=== PATIENT | male | born 1990 | race Caucasian/White ===

== ENCOUNTER 2025-01-05 22:10 | Emergency (ER) | payer OTHER, SELFPAY ==
--- OUTSIDE RECORDS SUMMARY | 2025-01-05 22:13 | XMS_ITS | Clinical Summary ---
Author Organization [employer] [facility] Address [address] [place] [id number] Care Team Providers Care Lead Operator Name Role Phone Clinic, [facility] Pro vider Allergies No known active allergies Medications No known medications Active Problems No known active problems Social History Tobacco Use Types Packs/Day Years Used Date Smoking Tobacco: Never Smokeless Tobacco: Never Alcohol Use Standard Drinks/Week Comments Never 0 (1 standard drink = 0.6 oz pur e alcohol) Utilities Answer Date Recorded Do you have trouble paying f or utilities (for example, heat, electricity, water, phone)? 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 Gender Identity Not on file Sexual Orientation Not on file Obstetrics History Last Filed Vital Signs Vital Sign Reading Time Taken Comments Blood Pressure 117/77 07/12/2023 1:55 PM CLINICAL PHARMACY MANAGER Pulse 92 07/12/2023 1:55 PM CLINICAL PHARMACY MANAGER Temperature 36.6 C (97.9 F) 07/12/2023 1:55 PM CLINICAL PHARMACY MANAGER Respiratory Rate 16 07/12/2023 1:55 PM CLINICAL PHARMACY MANAGER Oxygen Saturation 96% 07/12/2023 1:55 PM CLINICAL PHARMACY MANAGER Inhaled Oxygen Concentration - - Weight 110.9 kg (244 lb 9.6 oz) 07/12/2023 1:55 PM CLINICAL PHARMACY MANAGER Height - - Body Mass Index - - Plan of Treatment Health Maintenance Due Date Last Done Comments Tetanus booster 02/16/1999 Depression screening for age 12+ 2000 HIV for age 15-65 02/16/2003 BMI (ht and wt on same day) for age 18+ 02/16/2006 Hepatitis C screening for ag e 18-79 02/16/2006 Hepatitis B series for 19+ ( 1 of 3 - 19+ 3-dose series) 02/16/2007 Lipids for age 35-44 02/16/2023 COVID-19 vaccine series ( - 2023- season) 2024 Influenza Vaccine (#1) 2025 Pneumococcal series for age 6-49 Aged Out No longer eligible based on patient's age to complete this topic Care Teams Lead Operator Relationship Specialty Start Date End Date [facility], [address] [address] PCP - General 07/12/23
[2025-01-05 22:20] VITALS: BP 134/82; PULSE 90; RESP 20; TEMP 37.1; O2SAT 97; BMI 35.0
--- NOTE | 2025-01-05 22:39 | CRLHL7_ITS ---
For Patients: As a result of the Cures Act, medical imaging exams and procedure reports are released immediately into your electronic medical record. You may view this report before your referring provider. If you have questions, please contact your health care provider. INDICATION: Cough, SOB. TECHNIQUE: Chest 2 views. COMPARISON: 10/29/2024. FINDINGS: Cardiovascular and mediastinum: Heart size is normal. Unremarkable mediastinum. Lungs and pleural spaces: No sign of infiltrate or mass. No sign of pleural effusion. No pneumothorax. Bones and soft tissues: No significant findings. IMPRESSION: No acute findings. Dictated by Jayden Fiore MD @ 01/05/2025 10:58:37 PM (Electronically Signed)
--- NOTE | 2025-01-05 22:42 | ED.SOB ---
HPI - SOB/Dyspnea General Time Seen by Provider: 22:42 Date Seen: 01/05/25 Chief Complaint: Cough Stated Complaint: sob, not feeling good, pneumonia Time Seen by Provider: 01/05/25 22:40 Source: patient Mode of arrival: ambulatory History of Present Illness HPI Narrative: Giuliano is a 34-year-old male with no significant past medical history who presents emergency department for evaluation of a cough and shortness of breath. Patient reports that approximately 1 week ago he had upper respiratory infection/head cold. Patient states symptoms started to improve or Tuesday he developed another illness. Patient complains of generally feeling unwell, head pressure, rhinorrhea, dry cough, raspy voice, and today some shortness of breath. Patient reports he was seen at urgent care on Tuesday, no workup was done at that time, was told likely upper respiratory infection. Patient reports history of pneumonia 2 years ago and would like to make sure he does not have pneumonia. Patient denies any fever, chills, reports some chest discomfort with coughing but no other chest pain, denies any abdominal pain, nausea, vomiting, diarrhea. No lower extremity edema or calf tenderness. Patient reports he has been tried taking Mucinex, Sudafed, ibuprofen with no significant improvement of symptoms. Patient denies any tobacco use. Related Data Home Medications ?Medication ?Instructions ?Recorded ?Confirmed No Known Home Medications 10/29/24 01/05/25 Allergies Allergy/AdvReac Type Severity Reaction Status Date / Time No Known Drug Allergies Allergy Verified 01/05/25 22:23 Review of Systems Narrative: Past medical history, past surgical history, medications, allergies, family history, and social history were reviewed with the patient. No additional pertinent items. A medically appropriate review of systems was performed with pertinent positives and negatives noted in HPI, all other systems negative. [facility] Social History Smoking Status: Never smoker Second hand tobacco smoke exposure: No How often do you have a drink containing alcohol: never AUDIT-C Alcohol total score: 0 Non-prescribed substance use: denies use Exam Narrative: Exam Narrative: General: Afebrile, in distress HEENT: Normocephalic, atraumatic, conjunctiva normal. Bilaterally is with mild erythema, TMs nonbulging, posterior pharynx with mild erythema, no asymmetry, no exudate, MMM Neck: Supple, positive tender lymphadenopathy Cardio: regular rate. regular rhythm Resp: Normal work of breathing, no respiratory distress, lungs clear bilaterally, no wheezing, rhonchi, rales Chest/Back: no visual signs of trauma, no midline tenderness, no CVA tenderness Abdomen: soft, non distension, no tenderness, no peritoneal signs Neuro: alert and fully oriented. CN II-XII grossly intact. Grossly normal strength and sensation in all extremities. MSK: no deformities. Normal range of motion Integumentary/Skin: no rash visualized, normal color Psych: normal affect, normal behavior Const: Vital Signs, click to edit/add: Vital Signs - 24 hr 01/05/25 22:20 Temperature 98.8 F Pulse Rate [Right Pulse Oximeter] 90 Respiratory Rate 20 Blood Pressure [Ri ght Upper Arm] 134/82 Pulse Oximetry 97 Oxygen Delivery Me thod Room Air Course Course ED Course: Giuliano is a 34-year-old male with no significant past medical history who presents emergency department for evaluation of a cough and shortness of breath. Upon arrival patient is nontoxic appearing, afebrile, in distress. Patient hemodynamically stable vital signs within normal limits, oxygen 97% on room air, no significant respiratory distress, no tachycardia. Differential diagnosis includes but is not limited to viral illness versus influenza versus COVID versus RSV versus bronchitis versus pneumonia among others. I personally reviewed interpreted chest x-ray which demonstrates no focal infiltrate, no pneumothorax, no pleural effusion. Strep, COVID/influenza/RSV negative. I discussed results with patient. Suspect likely viral illness/URI. Recommend continue supportive care with humidified air, [id number] cough/cold medications, Tylenol, ibuprofen. I did discuss at length with patient regarding antibiotics. At this time would not recommend antibiotics however given patient's worsening symptoms, will send home with a prescription if he continues to have worsening symptoms over the next 24-48 hours or develops high fever, shortness of breath. Patient understands and agrees with the plan. Patient was treated with dose of dexamethasone in the emergency department. Plan for discharge with close outpatient follow-up and strict return precautions discussed. Vital Signs Vital signs: Initial Vital Signs Temperature 98.8 F 01/05/25 22:20 Temperature Source Temporal Artery Scan 01/05/25 22:20 Pulse Rate 90 01/05/25 22:20 Respiratory Rate 20 01/05/25 22:20 Respiratory Effort Normal, Spontaneous, Non-Labored 01/05/25 22:20 Respiratory Depth Normal 01/05/25 22:20 Respiratory Pattern Normal 01/05/25 22:20 Blood Pressure 134/82 01/05/25 22:20 Blood Pressure Mean 99 01/05/25 22:20 Blood Pressure Position Sitting 01/05/25 22:20 Pulse Oximetry 97 01/05/25 22:20 Oxygen Delivery Method Room Air 01/05/25 22:20 Vital Signs Temperature 98.8 F 01/05/25 22:20 Pulse Rate 90 01/05/25 22:20 Respiratory Rate 20 01/05/25 22:20 Blood Pressure 134/82 01/05/25 22:20 Pulse Oximetry 97 01/05/25 22:20 Oxygen Delivery Method Room Air 01/05/25 22:20 Temperature 98.8 F 01/05/25 22:20 Pulse Rate 90 01/05/25 22:20 Respiratory Rate 20 01/05/25 22:20 Blood Pressure 134/82 01/05/25 22:20 Pulse Oximetry 97 01/05/25 22:20 Oxygen Delivery Method Room Air 01/05/25 22:20 Medications Administered Medications: Generic Name Dose Route Start Last Admin Trade Name Freq PRN Reason Stop Dose Admin Dexamethasone 10 mg 01/05/25 23:42 01/05/25 23:45 Dexamethasone 10 Mg/Ml Pf PO 01/05/25 23:43 10 mg ONCE ONE Administration MDM - SOB/Dyspnea Lab Data Labs: Lab Results 01/05/25 Range/Units 22:51 SARS-CoV-2 (PCR) Negative SARS-CoV-2 (Negative) Influenza Type A (PCR) Negative PCR FLU A (Negative) Influenza Type B (PCR) Negative PCR FLU B (Negative) RSV (PCR) Negative PCR RSV (Negative) Group A Strep DNA NOT DETECTED (Not Detectd) Discharge Plan Discharge Clinical Impression: Cough Qualifiers: Cough type: acute Qualified Code(s): R05.1 - Acute cough Patient Disposition: Home, Self-Care Additional Instructions: Please follow-up with your primary care provider in the next 3-5 days for further evaluation and follow-up. Please call to schedule an appointment. Please rest, drink plenty of fluids. Please start antibiotics if you develop persistent high fever, worsening cough/shortness of breath in the next 24-48 hours. Please continue [id number] medications Tylenol 1000 mg and ibuprofen 600 mg every 6 hours as needed for fever, pain. Please alternate these medications he takes something every 3 hours. You may also continue [id number] cough/cold medications as needed. Please return to the emergency department if you develop persistent high fever, severe pain, difficulty breathing, or any worsening symptoms. It was a pleasure taking care of you today. We hope you feel better soon. Prescriptions: No Action No Known Home Medications Follow Up/Referrals: Provider,Not a Local [Primary Care Provider, Family Practice] Stand Alone Forms: [employer] Info Instructions
[2025-01-05 23:18] LABS: Strep A DNA Probe* NOT DETECTED (Not Detectd)
[2025-01-05 23:31] LABS: PCR FLU A Negative PCR FLU A (Negative); PCR FLU B Negative PCR FLU B (Negative); PCR RSV Negative PCR RSV (Negative); SARS PCR* Negative SARS-CoV-2 (Negative)
[2025-01-05] MEDS: DEXAMETHASONE 10 MG/ML PF PO (23:45)
[2025-01-05 23:49] VITALS: BP 134/82; PULSE 90; RESP 20; TEMP 37.1
[2025-01-05 23:51] VITALS: BP 122/74; PULSE 85; RESP 20; TEMP 37.1; O2SAT 97
== END 2025-01-05 23:51 | disposition home or self-care (01) ==
PROVIDERS: Emergency Provider Emergency Medicine
DX: R05.9 Cough, unspecified (principal); R06.02 Shortness of breath
CPT/HCPCS: 71046; 87631; 87651; 99283; 99284; 99285; J1100